=== PATIENT | female | born 1990 | race Two or more races ===

== ENCOUNTER 2024-07-01 20:01 | Outpatient (CLI) | payer OTHER ==
[2024-07-01 18:53] VITALS: BP 121/70
[2024-07-01] MEDS ORDERED: PRENATABS RX T1 EACH PO (20:04)
[2024-07-01 20:27] LABS: HEMATOCRIT 35.8 % (36.0-45.00); HEMOGLOBIN 11.7 g/dL (12.0-15.00); MEAN CELL VOLUME 89.1 fL (80.00-100.00); MEAN CORPUSCULAR HEMOGLOBIN 29.1 pg (27.00-32.0); MEAN CORPUSCULAR HGB CONC 32.7 g/dl (32.0-36.0); PLATELET COUNT 196 K/uL (150-450); RED BLOOD COUNT 4.02 M/uL (4.00-6.00); RED CELL DISTRIBUTION WIDTH 14.7 % (11.5-14.5)
[2024-07-01 20:51] LABS: INR < 0.93; PARTIAL THROMBOPLASTIN TIME 25.1 SECONDS (22.0-34.0); PROTHROMBIN TIME 9.9 SECONDS (9.0-11.5)
[2024-07-01 20:55] LABS: BILIRUBIN TOTAL 0.29 mg/dL (0.3-1.2); CREATININE SERUM 0.52 mg/dL (0.55-1.02); GFR 135.8; GLOBULINA 3.5 G/DL (2.4-3.5); POTASSIUM 3.88 mEq/L (3.5-5.1); TOTAL PROTEIN 6.5 gm/dL (6.4-8.2)
[2024-07-01 23:10] VITALS: BP 106/62
[2024-07-02 03:10] VITALS: BP 107/62; O2SAT 99
[2024-07-02 07:10] VITALS: BP 112/72
[2024-07-02 09:30] VITALS: BP 92/59
== END 2024-07-02 10:44 | disposition home or self-care (01) ==
LOC: OBS/DEL 20:01
PROVIDERS: ATTEND Obstetrics & Gynecology Gynecology
DX: O26.892 Other specified pregnancy related conditions, second trimester (principal); Z3A.26 26 weeks gestation of pregnancy

== ENCOUNTER 2024-08-07 13:17 | Inpatient (IN) | payer OTHER ==
[~2024-08-07] VITALS: Ht 167.6 cm; Wt 76.7 kg
[~2024-08-07 13:17] MED LIST: PRENATABS RX T1 EACH PO
[2024-08-07 13:22] VITALS: BP 102/68
[2024-08-07 14:24] LABS: HEMATOCRIT 37.3 % (36.0-45.00); HEMOGLOBIN 11.9 g/dL (12.0-15.00); MEAN CORPUSCULAR HEMOGLOBIN 28.4 pg (27.00-32.0); MEAN CORPUSCULAR HGB CONC 31.9 g/dl (32.0-36.0); PLATELET COUNT 185 K/uL (150-450); RED BLOOD COUNT 4.19 M/uL (4.00-6.00); RED CELL DISTRIBUTION WIDTH 14.7 % (11.5-14.5)
[2024-08-07] MEDS ORDERED: BETAMETHASONE ACETATE,SOD PHOS 30 MG/5 ML ML IM SCH (15:00)
[2024-08-07] MEDS ORDERED: RINGERS SOLUTION,LACTATED 1,000 ML IV SCH (15:00)
[2024-08-07 15:18] LABS: INR < 0.93; PROTHROMBIN TIME 10.2 SECONDS (9.0-11.5)
[2024-08-07 15:21] LABS: BILIRUBIN TOTAL 0.36 mg/dL (0.3-1.2); CALCIUM 8.8 mg/dL (8.5-10.1); CREATININE SERUM 0.44 mg/dL (0.55-1.02); GFR 163.68; GLOBULINA 3.4 G/DL (2.4-3.5); POTASSIUM 3.78 mEq/L (3.5-5.1); TOTAL PROTEIN 6.4 gm/dL (6.4-8.2)
[2024-08-07] MEDS ORDERED: MAGNESIUM SULFATE IN WATER 0.04 GM/ML IV.SOLN IV SCH (15:45)
[2024-08-08 00:54] VITALS: BP 102/64
[2024-08-08 03:23] VITALS: BP 115/71
[2024-08-08 06:43] VITALS: BP 108/67; O2SAT 99
[2024-08-08] MEDS ORDERED: NIFEDIPINE 30 MG TAB.SA.OSM PO SCH (09:00)
[2024-08-08] MEDS ORDERED: PNV,CALCIUM 72/IRON/FOLIC ACID 1 TAB TABLET PO SCH (09:00)
[2024-08-08 11:51] VITALS: BP 109/68; O2SAT 100
[2024-08-08 13:43] VITALS: BP 128/66
[2024-08-08] MEDS ORDERED: BETAMETHASONE ACETATE,SOD PHOS 30 MG/5 ML ML IM SCH (15:00)
[2024-08-08 16:00] VITALS: BP 109/71
[2024-08-08] MEDS ORDERED: FERROUS SULFATE 325 MG TABLET.EC PO SCH (16:00)
[2024-08-08] MEDS ORDERED: FAMOtidine 20 MG TABLET PO SCH (20:14)
[2024-08-09 01:09] VITALS: BP 113/64
[2024-08-09 09:00] VITALS: BP 116/74
[2024-08-10 01:18] VITALS: BP 119/63
[2024-08-10] MEDS ORDERED: Procardia Xl 30MG TA PO (07:36)
[2024-08-10 09:37] VITALS: BP 113/70
[2024-08-10 11:58] VITALS: BP 106/67
[2024-08-10 15:09] VITALS: BP 101/65
[2024-08-10] MEDS ORDERED: MAGNESIUM SULFATE IN WATER 500 ML IV SCH (17:15)
[2024-08-10] MEDS ORDERED: MAGNESIUM SULFATE IN WATER 100 ML IV NR (17:15)
[2024-08-10 20:59] VITALS: BP 116/76
[2024-08-10 23:35] VITALS: BP 109/72
[2024-08-11 03:39] VITALS: BP 102/64
[2024-08-11 07:49] VITALS: BP 104/63
[2024-08-11 11:17] VITALS: BP 109/71
[2024-08-11 12:56] VITALS: BP 120/73
[2024-08-11 17:03] VITALS: BP 117/83
[2024-08-12 01:00] VITALS: BP 95/60
[2024-08-12 08:00] VITALS: BP 111/71
[2024-08-12 16:35] VITALS: BP 100/65
[2024-08-13] VITALS: BP 100/60
[2024-08-13 08:30] VITALS: BP 110/77
== END 2024-08-13 09:43 | disposition home or self-care (01) | DRG 833 ==
LOC: LDR 13:17 → OB/GYN 08-08 13:38
PROVIDERS: ADMIT Obstetrics & Gynecology Maternal & Fetal Medicine; ATTEND Obstetrics & Gynecology Maternal & Fetal Medicine
PROC: 4A1HXCZ Monitoring of Products of Conception, Cardiac Rate, External Approach (ICD-10-PCS; principal; 2024-08-07)
DX: O44.03 Complete placenta previa NOS or without hemorrhage, third trimester (principal); Z3A.31 31 weeks gestation of pregnancy; Z20.822 Contact with and (suspected) exposure to COVID-19

== ENCOUNTER 2024-08-15 21:10 | Inpatient (IN) | payer OTHER ==
[~2024-08-15] VITALS: Ht 167.6 cm; Wt 77.1 kg
[2024-08-15 20:56] VITALS: BP 116/79
[~2024-08-15 21:10] MED LIST changes: +Procardia Xl 30MG TA PO
[2024-08-15] MEDS ORDERED: MAGNESIUM SULFATE IN WATER 500 ML IV SCH (21:30)
[2024-08-15] MEDS ORDERED: RINGERS SOLUTION,LACTATED 1,000 ML IV SCH (21:30)
[2024-08-15] MEDS ORDERED: MAGNESIUM SULFATE IN WATER 100 ML IV ONE (21:30)
[2024-08-15 22:02] LABS: HEMATOCRIT 38.3 % (36.0-45.00); HEMOGLOBIN 12.3 g/dL (12.0-15.00); MEAN CORPUSCULAR HEMOGLOBIN 28.5 pg (27.00-32.0); MEAN CORPUSCULAR HGB CONC 32.1 g/dl (32.0-36.0); PLATELET COUNT 177 K/uL (150-450); RED BLOOD COUNT 4.31 M/uL (4.00-6.00); RED CELL DISTRIBUTION WIDTH 15.1 % (11.5-14.5)
[2024-08-15 22:12] LABS: INR 0.94; PARTIAL THROMBOPLASTIN TIME 26.6 SECONDS (22.0-34.0); PROTHROMBIN TIME 10.3 SECONDS (9.0-11.5)
[2024-08-15 22:19] LABS: ALBUMIN 2.9 gm/dL (3.4-5.0); BILIRUBIN TOTAL 0.38 mg/dL (0.3-1.2); CALCIUM 8.6 mg/dL (8.5-10.1); CREATININE SERUM 0.71 mg/dL (0.55-1.02); GFR 94.23; GLOBULINA 3.5 G/DL (2.4-3.5); POTASSIUM 4.38 mEq/L (3.5-5.1); TOTAL PROTEIN 6.4 gm/dL (6.4-8.2)
[2024-08-15 23:26] VITALS: BP 113/78
[2024-08-16] MEDS ORDERED: GUAIFENESIN 100 MG/5 ML BLIST.PACK PO SCH (00:06)
[2024-08-16 04:35] VITALS: BP 126/70
[2024-08-16 09:08] VITALS: BP 106/63
[2024-08-16] MEDS ORDERED: OSELTAMIVIR PHOSPHATE 75 MG CAPSULE PO NR (11:15)
[2024-08-16 12:00] VITALS: BP 123/71
[2024-08-16 16:10] VITALS: BP 117/77
[2024-08-16] MEDS ORDERED: OSELTAMIVIR PHOSPHATE 75 MG CAPSULE PO SCH (17:00)
[2024-08-16 20:27] VITALS: BP 106/69
[2024-08-16 23:18] VITALS: BP 96/61
[2024-08-17 03:38] VITALS: BP 109/65
[2024-08-17 07:55] VITALS: BP 110/68
[2024-08-17 15:27] VITALS: BP 110/72
[2024-08-17 15:35] VITALS: BP 118/73
[2024-08-17] MEDS ORDERED: NIFEDIPINE 30 MG TAB.SA.OSM PO SCH (17:00)
[2024-08-18 00:34] VITALS: BP 116/68
[2024-08-18 08:20] VITALS: BP 109/72
[2024-08-18 15:53] LABS: HEMATOCRIT 36.9 % (36.0-45.00); HEMOGLOBIN 11.7 g/dL (12.0-15.00); MEAN CELL VOLUME 89.7 fL (80.00-100.00); MEAN CORPUSCULAR HEMOGLOBIN 28.4 pg (27.00-32.0); MEAN CORPUSCULAR HGB CONC 31.6 g/dl (32.0-36.0); PLATELET COUNT 164 K/uL (150-450); RED BLOOD COUNT 4.11 M/uL (4.00-6.00); RED CELL DISTRIBUTION WIDTH 14.7 % (11.5-14.5)
[2024-08-18 16:16] LABS: ALBUMIN 2.6 gm/dL (3.4-5.0); BILIRUBIN TOTAL 0.39 mg/dL (0.3-1.2); CALCIUM 8.6 mg/dL (8.5-10.1); CREATININE SERUM 0.49 mg/dL (0.55-1.02); GFR 144.56; GLOBULINA 3.2 G/DL (2.4-3.5); POTASSIUM 3.75 mEq/L (3.5-5.1); TOTAL PROTEIN 5.8 gm/dL (6.4-8.2)
[2024-08-19 00:01] VITALS: BP 104/59
[2024-08-19 11:54] VITALS: BP 115/73
[2024-08-19 16:00] VITALS: BP 109/71
[2024-08-20 00:30] VITALS: BP 110/71
[2024-08-20 08:00] VITALS: BP 115/77
== END 2024-08-20 09:42 | disposition home or self-care (01) | DRG 833 ==
LOC: LDR 21:10 → OB/GYN 08-17 08:40
PROVIDERS: ADMIT Obstetrics & Gynecology; ATTEND Obstetrics & Gynecology
PROC: 4A1HXCZ Monitoring of Products of Conception, Cardiac Rate, External Approach (ICD-10-PCS; principal; 2024-08-15)
PROC: BY4FZZZ Ultrasonography of Third Trimester, Single Fetus (ICD-10-PCS; 2024-08-17)
DX: O44.03 Complete placenta previa NOS or without hemorrhage, third trimester (principal); Z3A.32 32 weeks gestation of pregnancy; Z20.822 Contact with and (suspected) exposure to COVID-19

== ENCOUNTER 2024-08-23 09:26 | Inpatient (IN) | payer OTHER ==
[~2024-08-23] VITALS: Ht 167.6 cm; Wt 77.1 kg
[2024-08-23 07:36] VITALS: BP 105/70
[2024-08-23] MEDS ORDERED: RINGERS SOLUTION,LACTATED 1,000 ML IV SCH (09:45)
[2024-08-23] MEDS ORDERED: NIFEDIPINE 30 MG TAB.SA.OSM PO SCH (09:46)
[2024-08-23] MEDS ORDERED: PNV,CALCIUM 72/IRON/FOLIC ACID 1 TAB TABLET PO SCH (09:46)
[2024-08-23 10:27] LABS: HEMATOCRIT 38.1 % (36.0-45.00); HEMOGLOBIN 12.5 g/dL (12.0-15.00); MEAN CELL VOLUME 88.2 fL (80.00-100.00); MEAN CORPUSCULAR HEMOGLOBIN 28.9 pg (27.00-32.0); MEAN CORPUSCULAR HGB CONC 32.8 g/dl (32.0-36.0); PLATELET COUNT 169 K/uL (150-450); RED BLOOD COUNT 4.32 M/uL (4.00-6.00); RED CELL DISTRIBUTION WIDTH 14.5 % (11.5-14.5)
[2024-08-23 10:37] LABS: INR < 0.93; PARTIAL THROMBOPLASTIN TIME 25.3 SECONDS (22.0-34.0); PROTHROMBIN TIME 10.2 SECONDS (9.0-11.5)
[2024-08-23 11:07] LABS: ALBUMIN 2.7 gm/dL (3.4-5.0); BILIRUBIN TOTAL 0.48 mg/dL (0.3-1.2); CALCIUM 8.7 mg/dL (8.5-10.1); CREATININE SERUM 0.52 mg/dL (0.55-1.02); GFR 134.98; GLOBULINA 3.4 G/DL (2.4-3.5); POTASSIUM 4.26 mEq/L (3.5-5.1); TOTAL PROTEIN 6.1 gm/dL (6.4-8.2)
[2024-08-23 12:07] VITALS: BP 93/60
[2024-08-23 15:17] VITALS: BP 101/65
[2024-08-23] MEDS ORDERED: MAGNESIUM SULFATE IN WATER 500 ML IV SCH (17:30)
[2024-08-23] MEDS ORDERED: BETAMETHASONE ACETATE,SOD PHOS 30 MG/5 ML ML IM ONE (17:30)
[2024-08-23 19:21] VITALS: BP 101/68
[2024-08-23 23:11] VITALS: BP 109/70
[2024-08-24 03:06] VITALS: BP 94/56
[2024-08-24 06:14] VITALS: BP 100/64; O2SAT 98
[2024-08-24 09:40] VITALS: BP 130/83
[2024-08-24] MEDS ORDERED: NIFEDIPINE 30 MG TAB.SA.OSM PO NR (10:45)
[2024-08-24 15:32] VITALS: BP 104/68
[2024-08-24] MEDS ORDERED: NIFEDIPINE 30 MG TAB.SA.OSM PO SCH (21:00)
[2024-08-25 00:52] VITALS: BP 98/60
[2024-08-25 08:00] VITALS: BP 104/69
[2024-08-26] MEDS ORDERED: NIFEDIPINE20 MG PO (22:11)
== END 2024-08-25 10:39 | disposition home or self-care (01) | DRG 833 ==
LOC: LDR 09:26 → OB/GYN 08-24 08:55
PROVIDERS: ADMIT Obstetrics & Gynecology Maternal & Fetal Medicine; ATTEND Obstetrics & Gynecology Maternal & Fetal Medicine
PROC: 4A1HXCZ Monitoring of Products of Conception, Cardiac Rate, External Approach (ICD-10-PCS; principal; 2024-08-23)
DX: O44.03 Complete placenta previa NOS or without hemorrhage, third trimester (principal); Z3A.33 33 weeks gestation of pregnancy; Z20.822 Contact with and (suspected) exposure to COVID-19

== ENCOUNTER 2024-08-26 21:38 | Inpatient (IN) | payer OTHER ==
[~2024-08-26] VITALS: Ht 167.6 cm; Wt 2.7 kg
[2024-08-26 21:24] VITALS: BP 125/80
[2024-08-26] MEDS ORDERED: NIFEDIPINE20 MG PO (22:11)
[2024-08-26] MEDS ORDERED: MAGNESIUM SULFATE IN WATER 500 ML IV SCH (22:45)
[2024-08-26] MEDS ORDERED: RINGERS SOLUTION,LACTATED 1,000 ML IV SCH (22:45)
[2024-08-26] MEDS ORDERED: MAGNESIUM SULFATE IN WATER 100 ML IV ONE (22:45)
[2024-08-26] MEDS ORDERED: CEFOXITIN SODIUM 2,000 MG VIAL IV STA (23:50)
[2024-08-27 00:07] LABS: HEMATOCRIT 35.8 % (36.0-45.00); MEAN CELL VOLUME 87.7 fL (80.00-100.00); PLATELET COUNT 180 K/uL (150-450); RED BLOOD COUNT 4.08 M/uL (4.00-6.00); RED CELL DISTRIBUTION WIDTH 14.8 % (11.5-14.5)
[2024-08-27 00:08] LABS: HEMOGLOBIN 11.8 g/dL (12.0-15.00); MEAN CORPUSCULAR HEMOGLOBIN 28.9 pg (27.00-32.0)
[2024-08-27] MEDS ORDERED: KETOROLAC TROMETHAMINE 30 MG VIAL IM ONE (01:15)
[2024-08-27] MEDS ORDERED: PROMETHAZINE HCL 25 MG/ML AMPUL IM PRN (01:15)
[2024-08-27] MEDS ORDERED: MORPHINE SULFATE 4 MG/ML VIAL IV PRN (01:15)
[2024-08-27] MEDS ORDERED: OXYTOCIN 2,000 ML IV SCH ×2 (01:15→02:00)
[2024-08-27] MEDS ORDERED: MEPERIDINE HCL/PF 50 MG/ML VIAL IM PRN (01:15)
[2024-08-27 06:51] LABS: HEMATOCRIT 34.2 % (36.0-45.00); HEMOGLOBIN 11.3 g/dL (12.0-15.00); MEAN CELL VOLUME 86.9 fL (80.00-100.00); MEAN CORPUSCULAR HEMOGLOBIN 28.8 pg (27.00-32.0); MEAN CORPUSCULAR HGB CONC 33.2 g/dl (32.0-36.0); PLATELET COUNT 191 K/uL (150-450); RED BLOOD COUNT 3.94 M/uL (4.00-6.00); RED CELL DISTRIBUTION WIDTH 14.9 % (11.5-14.5)
[2024-08-27] MEDS ORDERED: CEFOXITIN SODIUM 2,000 MG VIAL IV SCH (09:00)
[2024-08-27] MEDS ORDERED: SIMETHICONE 125 MG CAPSULE PO SCH (09:00)
[2024-08-27] MEDS ORDERED: OxyCODONE HCL/APAP UD (PERCOCET) PO SCH (09:00)
[2024-08-27 11:05] VITALS: BP 121/80
[2024-08-27 16:16] VITALS: BP 104/70
[2024-08-28 00:44] VITALS: BP 144/82
[2024-08-28 08:06] VITALS: BP 102/60
[2024-08-28] MEDS ORDERED: DOCUSATE CALCIUM 240 MG CAPSULE PO SCH (17:00)
[2024-08-28 22:25] VITALS: BP 100/60
[2024-08-29] VITALS: BP 129/84
[2024-08-29 07:52] VITALS: BP 100/70
[2024-08-29] MEDS ORDERED: OXYC1TAB9 PO (08:40)
[2024-08-29] MEDS ORDERED: KETO10TA2 PO (08:41)
[2024-08-29 16:21] VITALS: BP 124/70
== END 2024-08-29 17:47 | disposition home or self-care (01) | DRG 786 ==
LOC: LDR 21:38 → OB/GYN 08-27 08:39
PROVIDERS: ADMIT Obstetrics & Gynecology Maternal & Fetal Medicine; ATTEND Obstetrics & Gynecology Maternal & Fetal Medicine
PROC: 4A1HXCZ Monitoring of Products of Conception, Cardiac Rate, External Approach (ICD-10-PCS; 2024-08-26)
PROC: 10D00Z1 Extraction of Products of Conception, Low, Open Approach (ICD-10-PCS; principal; 2024-08-26 21:00)
DX: O44.03 Complete placenta previa NOS or without hemorrhage, third trimester (principal); O60.14X0 Preterm labor third trimester with preterm delivery third trimester, not applicable or unspecified; Z3A.34 34 weeks gestation of pregnancy; Z37.0 Single live birth; Z20.822 Contact with and (suspected) exposure to COVID-19